=== PATIENT | male | born 1990 | race Hispanic/Latino ===

== ENCOUNTER 2021-12-22 11:59 | Emergency (ER) | payer OTHER ==
[~2021-12-22] VITALS: Ht 170.2 cm; Wt 73.3 kg
[2021-12-22] MEDS ORDERED: ACETAMINOPHEN TAB 650MG DOSE (2X325MG) PO ONE (13:10)
[2021-12-22 14:08] LABS: RSV AMPLIFICATION NEGATIVE (NEGATIVE)
[2021-12-22] MEDS ORDERED: OSEL75CA PO (16:19)
[2021-12-22] MEDS ORDERED: ONDA4TAB6 PO (16:19)
[2021-12-22] MEDS ORDERED: KETOROLAC 60MG 2ML VIAL IM ONE (16:20)
[2021-12-22] MEDS: ONDANSETRON 4 MG ORAL DISINTEGRATING TAB PO ONE ×2 (16:20→16:41)
[2021-12-22 16:32] VITALS: BP 135/86
== END 2021-12-22 16:51 | disposition home or self-care (01) ==
LOC: M ED 11:59
DX: J09.X9 Influenza due to identified novel influenza A virus with other manifestations (principal); R50.9 Fever, unspecified; M79.10 Myalgia, unspecified site
CPT/HCPCS: 87631; 96372; 99283; J1885

== ENCOUNTER 2022-08-27 21:17 | Inpatient (IN) | payer OTHER ==
[~2022-08-27] VITALS: Ht 170.2 cm; Wt 76.6 kg
[~2022-08-27 21:17] MED LIST: ONDA4TAB6 PO; OSEL75CA PO
[2022-08-27 22:06] LABS: BASO # 0.1 10^3/uL (0.0-0.2); BASO % 0.8 % (0.0-1.0); EOS # 0.5 10^3/uL (0.0-0.5); EOS % 4.3 % (0.0-3.0); HEMATOCRIT 46.7 % (42.0-52.0); HEMOGLOBIN 16.6 g/dl (13.5-17.5); LYMPH # 4.7 10^3/uL (1.5-5.0); LYMPH % 43.6 % (24.0-44.0); MEAN CORPUSCULAR HEMOGLOBIN 30.4 pg (27.0-33.0); MEAN CORPUSCULAR HGB CONC 35.5 g/dl (32.0-36.5); MEAN CORPUSCULAR VOLUME 85.5 fl (80.0-96.0); MONO # 0.9 10^3/uL (0.0-0.8); NEUTROPHILS # 4.7 10^3/uL (1.5-8.5); NEUTROPHILS % 43.1 % (36.0-66.0); PLATELET COUNT, AUTOMATED 253 10^3/uL (150-450); RED BLOOD COUNT 5.46 10^6/uL (4.30-6.10); WHITE BLOOD COUNT 10.9 10^3/uL (4.0-10.0)
[2022-08-27] MEDS ORDERED: atenoloL 50 MG TAB PO ONE (22:15)
[2022-08-27 22:22] VITALS: BP 194/113
[2022-08-27 22:39] LABS: RSV AMPLIFICATION NEGATIVE (NEGATIVE)
[2022-08-27 22:52] LABS: ACETAMINOPHEN LEVEL < 2.0 UG/ML (10.0-30.0); ALBUMIN 4.3 GM/DL (3.2-5.2); ALT/SGPT 152 U/L (12-78); BILIRUBIN,DIRECT 0.2 MG/DL (0.0-0.2); BILIRUBIN,TOTAL 0.5 MG/DL (0.2-1.0); BLOOD UREA NITROGEN 16 MG/DL (7-18); CALCIUM LEVEL 8.6 MG/DL (8.5-10.1); CARBON DIOXIDE LEVEL 24 MEQ/L (21-32); CHLORIDE LEVEL 105 MEQ/L (98-107); CREATININE FOR GFR 1.01 MG/DL (0.70-1.30); ETHYL ALCOHOL (ETHANOL) 0.146 % (0.000-0.010); GLOMERULAR FILTRATION RATE > 60.0 (>60); GLUCOSE, FASTING 142 MG/DL (70-100); POTASSIUM SERUM 3.4 MEQ/L (3.5-5.1); SALICYLATE LEVEL < 1.7 MG/DL (5.0-30.0); SODIUM LEVEL 139 MEQ/L (136-145); TOTAL PROTEIN 7.6 GM/DL (6.4-8.2)
[2022-08-28 00:05] LABS: AMPHETAMINES LEVEL URINE NEGATIVE (NEGATIVE); BARBITURATES URINE NEGATIVE (NEGATIVE); BENZODIAZEPINES URINE NEGATIVE (NEGATIVE); CANNABINOIDS URINE NEGATIVE (NEGATIVE); COCAINE METABOLITE URINE NEGATIVE (NEGATIVE); METHADONE URINE NEGATIVE (NEGATIVE); OPIATES URINE NEGATIVE (NEGATIVE); PHENCYCLIDINE URINE NEGATIVE (NEGATIVE)
[2022-08-28] MEDS ORDERED: NS 1,000 ML IV ONE ×2 (01:05→09:10)
[2022-08-28] MEDS: MULTIVITAMINS/MINERALS THERAP 1 TAB PO SCH (09:00)
[2022-08-28] MEDS: THIAMINE 100 MG TAB PO SCH ×2 (09:00→21:00)
[2022-08-28] MEDS: FOLIC ACID 1MG TAB PO SCH (09:00)
[2022-08-28] MEDS ORDERED: MOM 30ML SUSPENSION UDC PO PRN (12:50)
[2022-08-28] MEDS ORDERED: ACETAMINOPHEN TAB 650MG DOSE (2X325MG) PO PRN (12:50)
[2022-08-28] MEDS ORDERED: traZODone 50 MG TAB PO PRN (12:50)
[2022-08-28] MEDS ORDERED: MAALOX 30 ML SUSP *UDC PO PRN (12:50)
[2022-08-28] MEDS ORDERED: HOME MED LIST COMPLETE! XX SCH (13:35)
[2022-08-28] MEDS ORDERED: LORazepam 2 MG TAB PO PRN (13:55)
[2022-08-28 14:07] VITALS: BP 145/92
[2022-08-28 14:09] VITALS: BP 145/92
[2022-08-29 06:21] VITALS: BP 140/70
[2022-08-29 08:00] VITALS: BP 140/70
[2022-08-29] MEDS: MULTIVITAMINS/MINERALS THERAP 1 TAB PO SCH (09:00)
[2022-08-29] MEDS: FOLIC ACID 1MG TAB PO SCH (09:00)
[2022-08-29] MEDS: THIAMINE 100 MG TAB PO SCH (09:00)
[2022-08-29 12:18] LABS: CHOLESTEROL RISK RATIO 5.111 (<5)
[2022-08-29 12:20] LABS: ALBUMIN 3.9 GM/DL (3.2-5.2); ALT/SGPT 114 U/L (12-78); BILIRUBIN,DIRECT 0.2 MG/DL (0.0-0.2); BILIRUBIN,TOTAL 0.5 MG/DL (0.2-1.0); BLOOD UREA NITROGEN 16 MG/DL (7-18); CALCIUM LEVEL 9.1 MG/DL (8.5-10.1); CARBON DIOXIDE LEVEL 28 MEQ/L (21-32); CHLORIDE LEVEL 104 MEQ/L (98-107); FREE THYROXINE INDEX 4.2 % (1.4-3.8); GLOMERULAR FILTRATION RATE > 60.0 (>60); GLUCOSE, FASTING 114 MG/DL (70-100); SODIUM LEVEL 136 MEQ/L (136-145); T UPTAKE 29 % (33-40); THYROXINE (T4) 14.5 UG/DL (4.5-12.0); TOTAL PROTEIN 7.1 GM/DL (6.4-8.2)
[2022-08-29 16:14] VITALS: BP 144/79
[2022-08-30 07:02] VITALS: BP 134/64
[2022-08-30 07:06] LABS: HEMOGLOBIN A1c 5.7 %
[2022-08-30 07:20] LABS: CHOLESTEROL RISK RATIO 5.028 (<5)
[2022-08-30] MEDS: FOLIC ACID 1MG TAB PO SCH (09:00)
[2022-08-30] MEDS: MULTIVITAMINS/MINERALS THERAP 1 TAB PO SCH (09:00)
[2022-08-30 16:58] VITALS: BP 118/66
[2022-08-31 06:59] VITALS: BP 133/73
[2022-08-31] MEDS: VITAMIN D 1,000 INTERNATIONAL UNITS TABLET PO SCH (09:00)
[2022-08-31] MEDS: MULTIVITAMINS/MINERALS THERAP 1 TAB PO SCH (09:00)
[2022-08-31] MEDS: FOLIC ACID 1MG TAB PO SCH (09:00)
[2022-08-31 18:06] VITALS: BP 148/90
[2022-09-01 06:10] VITALS: BP 129/71
[2022-09-01] MEDS: FOLIC ACID 1MG TAB PO SCH (08:26)
[2022-09-01] MEDS: MULTIVITAMINS/MINERALS THERAP 1 TAB PO SCH (08:26)
[2022-09-01] MEDS: VITAMIN D 1,000 INTERNATIONAL UNITS TABLET PO SCH (08:26)
== END 2022-09-01 11:45 | disposition home or self-care (01) | DRG 881 ==
LOC: M ED 21:17 → M ED INP 08-28 12:49 → M PSY 08-28 14:00
PROVIDERS: ADMIT Psychiatry & Neurology Psychiatry; ATTEND Student in an Organized Health Care Education/Training Program
DX: F43.21 Adjustment disorder with depressed mood (principal); M62.82 Rhabdomyolysis; F10.10 Alcohol abuse, uncomplicated; Z63.5 Disruption of family by separation and divorce; T50.902A Poisoning by unspecified drugs, medicaments and biological substances, intentional self-harm, initial encounter